=== PATIENT | female | born 1955 | race Caucasian/White ===

== ENCOUNTER 2018-04-30 19:42 | Emergency (ER) | payer OTHER, MEDICARE ==
[~2018-04-30] VITALS: Ht 160 cm; Wt 61.2 kg
--- OUTSIDE RECORDS SUMMARY | 2018-04-30 19:44 | XMS REPORT | Clinical Summary ---
Author Author [facility] Organization [facility] Address Unknown Phone Unavailable Care Team Providers Care Caretaker Name Role Phone Asked, None Given PCP Unavailable Allergies No Known Allergies Medications End Date Status Medication Sig Dispensed Refills Start Date Active OXYCONTIN 30 mg TAKE ONE (1) 0 tablet,oral TABLET(S) BY 6 only,ext.rel.12 hr ER MOUTH FOUR tablet TIMES A DAY. Active PAZEO 0.7 % drops USE ONE (1) 3 DROP IN BOTH 6 EYES ONCE A DAY NEEDED. Active SYNTHROID 137 mcg tablet 0 6 Active HYDROcodone-acetaminophen TAKE ONE (1) 0 (NORCO) 10-325 mg per TABLET(S) BY 6 tablet MOUTH EVERY FOUR HOURS NEEDED FOR PAIN. Active lansoprazole (PREVACID) 0 30 MG capsule 6 Active valACYclovir (VALTREX) valacyclovir 0 1000 MG tablet 1 gram tablet Active Methenamine + Hyoscyamine Urelle 81 0 + Methylene Blue + mg-10.8 Salicylate + NaPhos mg-40.8 mg (URELLE) 81-10.8-40.8 mg tablet tablet Active fenofibrate (TRICOR) 145 0 MG tablet 7 Active ondansetron (ZOFRAN) 8 MG TAKE ONE (1) 4 tablet TABLET(S) BY 7 MOUTH EVERY EIGHT HOURS NEEDED FOR NAUSEA. Active diclofenac sodium 3 % gel 0 7 Active doxepin (ZONALON) 5 % 0 cream 7 Active fluocinonide 0.1 % cream 0 7 Active sucralfate (CARAFATE) 1 TAKE ONE (1) 4 12/20/201 gram tablet TABLET(S) BY 7 MOUTH BEFORE MEALS AND AT BEDTIME. Active betamethasone valerate APPLY SMALL 0 0.12 % foam AMOUNT TO 8 AFFECTED AREAS ON SCALP TWICE A DAY NEEDED. Active hyoscyamine TAKE ONE (1) 3 (ANASPAZ,LEVSIN) 0.125 mg TABLET(S) BY 8 tablet MOUTH EVERY FIVE HOURS NEEDED FOR BLADDER SPASMS. Active tiZANidine (ZANAFLEX) 4 TAKE 1 TABLET 270 tablet 1 MG tablet EVERY 8 8 HOURSAS NEEDED FOR MUSCLE SPASMS Active DULoxetine (CYMBALTA) 60 Take 1 90 capsule 1 MG capsule capsule (60 8 mg total) by mouth daily. Active lidocaine (LIDODERM) 5 % Place 1 patch 90 patch 3 on the skin 8 daily. Remove after 12 hours 08/09/2017 Discontinued lidocaine (LIDODERM) 5 % Place 1 patch 30 patch 6 on the skin 7 daily. Remove after 12 hours 05/11/2017 Discontinued DULoxetine (CYMBALTA) 60 Take 1 90 capsule 1 MG capsule capsule (60 7 mg total) by mouth daily. 05/11/2017 Discontinued tiZANidine (ZANAFLEX) 4 Take 1 tablet 270 tablet 1 MG tablet (4 mg total) 7 by mouth every 8 (eight) hours as needed for muscle spasms. 05/11/2017 Discontinued pantoprazole (PROTONIX) TAKE ONE (1) 3 40 MG EC tablet TABLET(S) BY 7 MOUTH TWICE A DAY. 08/09/2017 Discontinued DULoxetine (CYMBALTA) 60 Take 1 90 capsule 1 MG capsule capsule (60 8 mg total) by mouth daily. 08/09/2017 Discontinued tiZANidine (ZANAFLEX) 4 Take 1 tablet 270 tablet 1 MG tablet (4 mg total) 8 by mouth every 8 (eight) hours as needed for muscle spasms. 08/21/2017 Discontinued DULoxetine (CYMBALTA) 60 Take 1 90 capsule 3 MG capsule capsule (60 8 mg total) by mouth daily. 08/21/2017 Discontinued tiZANidine (ZANAFLEX) 4 Take 1 tablet 270 tablet 1 MG tablet (4 mg total) 8 by mouth every 8 (eight) hours as needed for muscle spasms. 02/07/2018 Discontinued lidocaine (LIDODERM) 5 % Place 1 patch 90 patch 3 on the skin 8 daily. Remove after 12 hours 02/07/2018 Discontinued DULoxetine (CYMBALTA) 60 TAKE 1 90 capsule 1 MG capsule CAPSULE DAILY 8 Active Problems Problem Noted Date History of disarticulation of right hip 06/21/2017 Phantom pain after amputation of lower extremity 05/11/2017 Elbow pain 02/09/2017 Elbow tendonitis 02/09/2017 Abnormality of gait 11/09/2016 Right hip pain 11/09/2016 Neuropathic pain 11/09/2016 Abnormal glucose level 09/19/2015 Abnormal pulse oximetry 09/19/2015 Acute posthemorrhagic anemia 09/19/2015 Acute respiratory failure 09/19/2015 Anemia 09/19/2015 Atelectasis 09/19/2015 Constipation 09/19/2015 Dialysis complication 09/19/2015 Disorder of cardiac function 09/19/2015 Stress incontinence in female 09/19/2015 Disorder of magnesium metabolism 09/19/2015 Primary malignant neoplasm of pelvis 09/19/2015 Urethral stricture 09/19/2015 Urinary incontinence 09/19/2015 Pain 09/19/2015 Open wound of trunk 09/19/2015 Open wound of anterior abdominal wall with complication 09/19/2015 Nocturnal and diurnal enuresis 09/19/2015 Neoplasm of uncertain behavior 09/19/2015 Nausea 09/19/2015 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 09/19/2015 Leukocytosis 09/19/2015 Hypokalemia 09/19/2015 Abnormal finding of trunk 09/19/2015 Overview: Finding of Trunk Structure 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 Overview: Urethral Sphincter Function-finding 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 Encounters Care Team Description Date Type Specialty Hans James MD Canceled (Patient) 04/20/2018 Hospital Radiology Encounter Hans James MD 04/20/2018 Telephone Oncology Antonina Barnard MA Sarcoma (HCC) (Primary Dx) 03/30/2018 Orders Only Oncology Antonina Barnard MA Sarcoma (HCC) (Primary Dx) 03/30/2018 Orders Only Oncology Hans James MD 03/16/2018 Telephone Oncology Ragini No MD Right hip pain (Primary Dx); Neuropathic pain; History of disarticulation of right hip; Abnormality of gait; Right elbow pain; Elbow tendonitis; Phantom pain after amputation of lower extremity (HCC) 02/07/2018 Office Visit Physical Medicine and Rehabilitation Ragini No MD Neuropathic pain (Primary Dx); Right elbow pain; Phantom pain after amputation of lower extremity; Right hip pain; Elbow tendonitis; History of disarticulation of right hip 11/08/2017 Office Visit Physical Medicine and Rehabilitation Hans James MD Fatty infiltration of liver 09/07/2017 Lab Lab Hans James MD 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 Office Visit Oncology Hans James MD 09/07/2017 Orders Only Oncology Antonina Barnard MA Fatty infiltration of liver (Primary Dx) 09/07/2017 Orders Only Oncology Ragini No MD 08/21/2017 Refill Physical Medicine and Rehabilitation Ragini No MD Phantom pain after amputation of lower extremity (Primary Dx); Neuropathic pain; Right elbow pain; Right hip pain 08/09/2017 Office Visit Physical Medicine and Rehabilitation Ragini No MD History of disarticulation of right hip (Primary Dx); Phantom pain after amputation of lower extremity; Neuropathic pain; Abnormality of gait; Right elbow pain; Elbow tendonitis 06/21/2017 Office Visit Physical Medicine and Rehabilitation Ragini No MD Decreased mobility (Primary Dx) 06/16/2017 Transcribe Physical Therapy Orders Ragini oN MD Right elbow pain 05/11/2017 Hospital Radiology Encounter Leah Zapien MD Elbow tendonitis (Primary Dx); Right elbow pain; Myofascial pain 05/11/2017 Office Visit Physical Medicine and Rehabilitation Ragini No MD Abnormality of gait (Primary Dx); Neuropathic pain; Right hip pain; Right elbow pain; Phantom pain after amputation of lower extremity 05/11/2017 Office Visit Physical Medicine and Rehabilitation after 04/29/2017 Social History Date Tobacco Use Types Packs/Day Years Used Former Smoker Smokeless Tobacco: Never Used Tobacco Cessation: Counseling Given: No Comments: stopped 2006 Sex Assigned at Date Recorded Not on file Industry Job Start Date Occupation Not on file Not on file Not on file Travel End Travel History Travel Start No recent travel history available. Last Filed Vital Signs Time Taken Vital Sign Reading 02/07/2018 2:11 PM CDT Blood Pressure 138/88 02/07/2018 2:11 PM CDT Pulse 71 09/07/2017 2:22 PM CDT Temperature 35.9 C (96.7 F) - Respiratory Rate - - Oxygen Saturation - - Inhaled Oxygen - Concentration 09/07/2017 2:22 PM CDT Weight 62.1 kg (137 lb) - Height - 09/07/2017 2:22 PM CDT Body Mass Index 25.89 Plan of Treatment Care Team Description Date Type Specialty Ragini No MD [address] [address] 05/10/2018 Office Visit Physical Medicine and Rehabilitation Health Maintenance Due Date Last Done Comments CERVICAL CANCER SCREENING 1974 COLON CANCER SCREENING 2003 SHINGLES VACCINES (1 of 2003 2) BREAST CANCER SCREENING 06/18/2012 06/18/2010, 06/09/2010 INFLUENZA VACCINE 12/01/2017 PNEUMOCOCCAL 2018 POLYSACCHARIDE VACCINE AGE 65 AND OVER PNEUMOCOCCAL-13 2018 Procedures Comments Procedure Name Priority Date/Time Associated Diagnosis DRUG SCREEN Routine 11/23/2017 CARCINOEMBRYONIC ANTIGEN Routine 09/07/2017 (CEA) 3:20 PM CDT CBC WITH PLATELET AND Routine 09/07/2017 DIFFERENTIAL 3:20 PM CDT COMPREHENSIVE METABOLIC Routine 09/07/2017 PANEL 3:20 PM CDT LDH Routine 09/07/2017 3:20 PM CDT LIPID PANEL Routine 09/07/2017 3:20 PM CDT DRUG SCREEN Routine 08/12/2017 TN MD SERVICE REQUIRED Routine 06/21/2017 Right elbow pain FOR PMD 9:30 AM TARPER History of disarticulation of right hip DRUG SCREEN Routine 05/18/2017 XR ELBOW 2 VW RIGHT Routine 05/11/2017 Right elbow pain 1:39 PM TARPER TN INJECT TRIGGER POINT, Routine 05/11/2017 Right elbow pain 1 OR 2 12:32 PM TARPER Myofascial pain TN ARTHROCENTESIS Routine 05/11/2017 Elbow tendonitis ASPIR&/INJ INTERM JT/BURS 12:32 PM TARPER Right elbow pain W/O US after 04/29/2017 Results * Drug Screen (11/23/2017) Only the most recent of 3 results within the time period is included. Narrative Performed At * CBC with platelet and differential (09/07/2017 3:20 PM CDT) WBC 7.0 3.8 - 10.8 Thousand/uL [facility] [place] RBC 4.16 3.80 - 5.10 Million/uL [facility] [place] HGB 12.0 11.7 - 15.5 g/dL [facility] [place] HCT 35.7 35.0 - 45.0 % [facility] [place] MCV 85.8 80.0 - 100.0 fL [facility] [place] MCH 28.8 27.0 - 33.0 pg [facility] [place] MCHC 33.6 32.0 - 36.0 g/dL [facility] [place] RDW 12.4 11.0 - 15.0 % [facility] [place] Platelet count 326 140 - 400 Thousand/uL [facility] [place] MPV 9.8 7.5 - 12.5 fL [facility] [place] Neutrophils, absolute 3,395 1,500 - 7,800 cells/uL [facility] [place] Lymphocytes, absolute 2,499 850 - 3,900 cells/uL [facility] [place] Monocytes, absolute 651 200 - 950 cells/uL [facility] [place] Eosinophils, absolute 392 15 - 500 cells/uL [facility] [place] Basophils, absolute 63 0 - 200 cells/uL [facility] [place] Neutrophils 48.5 % [facility] [place] Lymphocytes 35.7 % [facility] [place] Monocytes 9.3 % [facility] [place] Eosinophils 5.6 % [facility] [place] Basophils + RC 0.9 % [facility] [place] Narrative Performed At FASTING: UNKNOWN [facility] Resulting Agency Comment Performing Organization Information: Site ID: [id number] Name: [facility] Address: [address] [place] [id number] Director: Mae Shaw Performing Organization Address City/State/Zipcode Phone [place] [address] * LDH (09/07/2017 3:20 PM CDT) LDH 161 120 - 250 U/L [facility] [place] Narrative Performed At FASTING: UNKNOWN [facility] Resulting Agency Comment Performing Organization Information: Site ID: [facility] Name: [facility] Address: [address] [place] [phone] Director: Mae Shaw Performing Organization Address [facility] Phone [place] [address] * Carcinoembryonic antigen (CEA) (09/07/2017 3:20 PM CDT) CEA 2.5 (H) See Note: ng/mL [facility] Comment: [place] Reference Range: Non-Smoker: <2.5 Smoker: <5.0 This test was performed using the Siemens chemiluminescent method. Values obtained from different assay methods cannot be used interchangeably. CEA levels, regardless of value, should not be interpreted as absolute evidence of the presence or absence of disease. Narrative Performed At FASTING: UNKNOWN [facility] Resulting Agency Comment Performing Organization Information: Site ID: [facility] Name: [facility] Address: [address] [place] [phone] Director: Mae Shaw Performing Organization Address [facility] Phone Number [employer] [place] [address] * Lipid panel (09/07/2017 3:20 PM CDT) Cholesterol, total 196 <200 mg/dL [facility] [place] HDL cholesterol 37 (L) >50 mg/dL [facility] [place] Triglycerides 290 (H) <150 mg/dL [facility] [place] LDL cholesterol 118 (H) mg/dL (calc) [facility] Comment: [place] Reference range: <100 Desirable range <100 mg/dL for primary prevention; <70 mg/dL for patients with CHD or diabetic patients with > or=2 CHD risk factors. LDL-C is now calculated using the James calculation, which is a validated novel method providing better accuracy than the Friedewald equation in the estimation of LDL-C. Eran BECKWITH et al. LOTTIE. 2013;310(19): 9347-4441 (http://education.Logicworks.com/faq/KOP465) Cholesterol/HDL ratio 5.3 (H) <5.0 (calc) [facility] [place] Non-HDL cholesterol 159 (H) <130 mg/dL (calc) [facility] Comment: [place] For patients with diabetes plus 1 major ASCVD risk factor, treating to a non-HDL-C goal of <100 mg/dL (LDL-C of <70 mg/dL) is considered a therapeutic option. Narrative Performed At FASTING: UNKNOWN [facility] Resulting Agency Comment Performing Organization Information: Site ID: [id number] Name: [facility] Address: [address] [place] [phone] Director: Mae Shaw Performing Organization Address City/State/Zipcode Phone Number [employer] [place] [phone] * Comprehensive metabolic panel (09/07/2017 3:20 PM CDT) Glucose 100 (H) 65 - 99 mg/dL [facility] Comment: [place] Fasting reference interval For someone without known diabetes, a glucose value between 100 and 125 mg/dL is consistent with prediabetes and should be confirmed with a follow-up test. BUN, whole blood 18 7 - 25 mg/dL [facility] Creatinine 0.70 0.50 - 0.99 mg/dL [facility] Comment: [place] For patients >49 years of age, the reference limit for Creatinine is approximately 13% higher for people identified as -Citizen [place]. EGFR Non-Afr. [place] 92 > OR=60 mL/min/1.73m2 [facility] EGFR 106 > OR=60 mL/min/1.73m2 [facility] BUN/creatinine ratio NOT APPLICABLE 6 - 22 (calc) [facility] [place] Sodium 141 135 - 146 mmol/L [facility] [place] Potassium 4.0 3.5 - 5.3 mmol/L [facility] [place] Chloride 104 98 - 110 mmol/L [facility] [place] CO2 31 20 - 31 mmol/L [facility] [place] Calcium 9.1 8.6 - 10.4 mg/dL [facility] [place] Protein 5.7 (L) 6.1 - 8.1 g/dL [facility] [place] Albumin, S 3.8 3.6 - 5.1 g/dL [facility] [place] Globulin, total 1.9 1.9 - 3.7 g/dL (calc) [facility] [place] Albumin/globulin ratio 2.0 1.0 - 2.5 (calc) [facility] [employer] [facility] [place] Total bilirubin 0.3 0.2 - 1.2 mg/dL [facility] [place] Alkaline phosphatase 62 33 - 130 U/L [facility] AST 22 10 - 35 U/L [facility] ALT 21 6 - 29 U/L [facility] [place] Narrative Performed At FASTING: UNKNOWN [facility] Resulting Agency Comment Performing Organization Information: Site ID: [id number] Name: [facility] Address: [address] [place] [phone] Director: Mae Shaw Performing Organization Address City/State/Zipcode [place] [address] * Mobility Examination (06/21/2017 9:30 AM TARPER) Narrative Performed At Ragini No MD 06/21/2017 11:31 AM Mobility Exam Date/Time: 06/21/2017 10:33 AM Performed by: RAGINI NO Authorized by: RAGINI NO Medical conditon(s)/disease(s) limiting patient's mobility in home:Other (Right hip pelvectomy, severe OA with pain of arms) Physical Exam - Symptoms/ Limitations / Pain: SYMPTOMS:Amputation, Abnormal Gait and Risk of Falls Upper Body Weakness:Mild Upper Body Pain:Severe Upper Body Range of Motion:Partially Limited Lower Body Weakness:Moderate Lower Body Pain:Moderate Lower Body Range of Motion:Severely Limited (Right hip pelvectomy.) PAIN LOCATION:R Elbow, L Shoulder, R Shoulder and L Knee Mobility Questions: Patient has ability to stand from seated position without assistance?: No Patient Transfer:Independently Can patient lift themselves from seated surface using only upper extremities?: No Does patient have ability to effectively pressure shift?: No History of pressure sores?: No Current pressure sores?: No Upper Extremity Edema: No Lower Extremity Edema: Yes LE Edema Severity:Mild Mobility Related Activities of Daily Living: Without a mobility aid, how far can patient walk without stopping (ft)?: 0 Distance allows patient to complete MRADL in safe and timely manner?: No Select all MRADL that patient is unable to accomplish due to mobility limitations.:Eating, Toileting, Meal Prep, Light Housekeeping, Grooming, Dressing, Bathing and Moving from Room to Room Is patient willing and have cogintion, judgment and/or vision to independently participate in MRADLs with a mobility device?: Yes Will a cane or walker allow patient to complete all MRADLs safely and timely?: No Does patient have sufficient upper and/or lower extremity strength to self-propel an optimally configured manual wheelchair to complete all MRADLs safely and timely?: No (Right elbow tendonitis with pain) Scooter use requires a patient to have sufficient trunk strength, hand bottling equipment sales representative, and upper extremity function, balance to sit upright, requires the ability to stand and pivot and may require more space in home to maneuver. Given these requirements, is a scooter appropriate?: No Reason(s):Patient has insufficient upper extremity function and/or strength, Patient has insufficient hand bottling equipment sales representative and Patient requires seating and/or options that aren't available on a scooter Does the patient have the functional ability to consistently access a drive controland the cognition, judgment, and visual ability to safely operate a power wheelchair to participate in MRADLs within their home?: Yes Patient requires OT/PT Functional Mobility Assessment?: Yes * XR Elbow 2 Vw Right (05/11/2017 1:39 PM TARPER) Narrative Performed At EXAMINATION:XR ELBOW 2 VW RIGHT HM [facility] CLINICAL HISTORY:M25.521 Pain in right elbow, ARTHRITISELBOW COMPARISON:No Prior IMPRESSION: 1.The bones, soft tissues and joints are unremarkable. No definite elbow joint effusion or acute fracture. No appreciable osteoarthritis is present. Joint spaces are preserved. [facility]-[id number] Procedure Note Hm Interface, Radiology Results Incoming - 05/11/2017 2:28 PM [facility]ARPER EXAMINATION: XR ELBOW 2 VW RIGHT CLINICAL HISTORY: M25.521 Pain in right elbow, ARTHRITIS ELBOW COMPARISON: No Prior IMPRESSION: 1. The bones, soft tissues and joints are unremarkable. No definite elbow joint effusion or acute fracture. No appreciable osteoarthritis is present. Joint spaces are preserved. [facility]-[id number] Performing Organization Address City/State/Zipcode Phone Number [facility] [address] [place] [address] * Joint/Bursa Injection (05/11/2017 12:32 PM TARPER) Narrative Performed At Leah Zapien MD 05/11/2017 12:32 PM Joint/Bursa Injection Consent given by: patient Timeout: Immediately prior to procedure a time out was called to verify the correct patient, procedure, equipment, office support and site/side marked as required Supporting Documentation Indications: pain Procedure Details Injection Type: joint Location: elbow (right lateral epicondyle) - right Medications administered: 20 mg triamcinolone acetonide 40 mg/mL; 0.5 mL lidocaine 10 mg/mL (1 %) Elbow Joint Size: intermediate * INJECT TRIGGER POINT, 1 OR 2 (05/11/2017 12:32 PM TARPER) Narrative Performed At Leah Zapien MD 05/11/2017 12:32 PM Trigger Point Injection Date/Time: 05/11/2017 12:31 PM Performed by: LEAH ZAPIEN Authorized by: LEAH ZAPIEN Consent: Consent obtained:Written Consent given by:Patient Risks discussed:Allergic reaction, bleeding, infection, pain and nerve damage Alternatives discussed:No treatment, alternative treatment and referral Indications: Indications:Pain relief Location: Therapeutic Trigger Point Injection:Single/multiple trigger point(s): 1-2 muscle groups Location: elbow Location comment:Proximal forearm extensors adjacent to lateral epicondyle Elbow injected:Right Medications administered: 20 mg triamcinolone acetonide 40 mg/mL; 0.5 mL lidocaine 10 mg/mL (1 %) Pre-procedure details: Skin preparation:Alcohol Post-procedure details: Patient tolerance of procedure:Tolerated well, no immediate complications after 04/29/2017 Insurance Payer Benefit Subscriber ID Type Phone Address Plan / Group AETNA AETNA xxxxxxxxxx HMO HMO,POS,EP O, MC/EC Advance Directives Patient has advance care planning documents on file. For more information, vasu gongora contact: Al Lechuga [address] [place] [address]
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
== END 2018-04-30 22:03 | disposition home or self-care (01) ==
LOC: FSED 19:42
DX: S02.2XXA Fracture of nasal bones, initial encounter for closed fracture (principal); S00.33XA Contusion of nose, initial encounter; S46.812A Strain of other muscles, fascia and tendons at shoulder and upper arm level, left arm, initial encounter; V43.62XA Car passenger injured in collision with other type car in traffic accident, initial encounter; Y92.488 Other paved roadways as the place of occurrence of the external cause
CPT/HCPCS: 70486; 99283

== ENCOUNTER 2019-02-08 00:49 | Observation (INO) | payer MEDICARE ==
[~2019-02-08] VITALS: Ht 160 cm; Wt 62.6 kg
[2019-02-08] VITALS (8 sets, daily range): BP systolic 118–152; BP diastolic 54–89
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
[2019-02-08] MEDS ORDERED: MORPHINE SULFATE INJ 4 MG/ML INJ 1ML IV STA (00:54)
[2019-02-08] MEDS ORDERED: ONDANSETRON HCL INJ 2MG/ML 2ML 2 MG/ML VIAL IV STA (00:54)
[2019-02-08] MEDS ORDERED: ASPIRIN 81 MG CHEW TAB PO ONE ×2 (01:00→02:45)
[2019-02-08 01:17] LABS: BASOPHILS # (AUTO) 0.1 (0.0-0.1); BASOPHILS % 0.5 % (0.0-1.0); EOSINOPHILS # (AUTO) 0.5 (0.0-0.4); EOSINOPHILS % 4.7 % (0.0-6.0); HEMATOCRIT 36.1 % (34.2-44.1); HEMOGLOBIN 11.7 g/dL (12.0-16.0); LYMPHOCYTES # (AUTO) 2.3 (1.0-3.2); LYMPHOCYTES % 22.8 % (18.0-39.1); MEAN CORPUSCULAR HEMOGLOBIN 28.1 pg (28-32); MEAN CORPUSCULAR HGB CONC 32.4 g/dL (31-35); MEAN CORPUSCULAR VOLUME 86.8 fL (81-99); MONOCYTES # (AUTO) 0.9 (0.2-0.8); MONOCYTES % 8.7 % (4.4-11.3); NEUTROPHILS # (AUTO) 6.5 (2.1-6.9); NEUTROPHILS % 63.1 % (38.7-80.0); PLATELET COUNT 336 x10e3/uL (140-360); RED BLOOD COUNT 4.16 x10e6/uL (3.6-5.1); RED CELL DISTRIBUTION WIDTH 13.7 % (11.7-14.4)
[2019-02-08 01:34] LABS: ALANINE AMINOTRANSFERASE 16 IU/L (0-55); ALBUMIN 3.5 g/dL (3.5-5.0); ALBUMIN/GLOBULIN RATIO 1.1 (0.8-2.0); ALKALINE PHOSPHATASE 49 IU/L (40-150); ANION GAP 15.6 mmol/L (8-16); BLOOD UREA NITROGEN 15 mg/dL (7-26); BUN/CREATININE RATIO 18 (6-25); CALCIUM 10.1 mg/dL (8.4-10.2); CARBON DIOXIDE 28 mmol/L (22-29); CHLORIDE 104 mmol/L (98-107); CREATINE KINASE 54 IU/L (29-168); CREATININE, SERUM 0.83 mg/dL (0.57-1.11); EST GLOMERULAR FILTRATION RATE > 60 ML/MIN (60-); GLUCOSE 126 mg/dL (74-118); POTASSIUM 3.6 mmol/L (3.5-5.1); SODIUM 144 mmol/L (136-145)
--- NOTE | 2019-02-08 01:55 | Diagnostic Imaging Report ---
EXAMINATION: CHEST SINGLE (NOT PORTABLE) INDICATION: CHEST PAIN COMPARISON: 11/25/2009. FINDINGS: TUBES and LINES: None. LUNGS: There are bibasilar atelectasis. There is no evidence of pneumonia or pulmonary edema. PLEURA: No pleural effusion or pneumothorax. HEART AND MEDIASTINUM: The cardiomediastinal silhouette is unremarkable. BONES AND SOFT TISSUES: No acute osseous lesion. Soft tissues are unremarkable. UPPER ABDOMEN: No free air under the diaphragm. IMPRESSION: No acute thoracic abnormality. Signed by: Dr. Maria Del Rosario Echavarria M.D. on 02/08/2019 1:52 AM
[2019-02-08] MEDS ORDERED: ONDANSETRON HCL INJ 2MG/ML 2ML 2 MG/ML VIAL IV PRN (02:45)
--- NOTE | 2019-02-08 03:45 | NUR ---
patient received to room 299 via stretcher from the emergency room. vss. no c/o occasional chest pain 10/10. admit assessment/history complete. at the bedside. patient/ instructed to call for assistance when needed.
[2019-02-08] MEDS ORDERED: SYNTHROID125 MCG PO (05:45)
[2019-02-08] MEDS ORDERED: NORCO 10-325 T1 EACH (05:45)
[2019-02-08] MEDS ORDERED: OXYCONTIN10 MG PO (05:45)
[2019-02-08] MEDS ORDERED: CYMBALTA30 MG (05:45)
[2019-02-08] MEDS: MORPHINE SULFATE INJ 4 MG/ML INJ 1ML IV PRN ×2 (06:12→06:42)
--- NOTE | 2019-02-08 06:12 | NUR ---
patient medicated with morphine 4mg and zofran 4mg ivp for c/o chest pain 11/09 at this time per patients request. remains at the bedside.
--- NOTE | 2019-02-08 06:50 | NUR ---
RECEIVED REPORT FROM ONCOMING NURSE. WALKING ROUNDS DONE. PATIENT IS RESTING IN BED. NO ACUTE DISTRESS NOTED. CALL LIGHT WITHIN REACH. BED IN THE LOWEST POSITION.
--- NOTE | 2019-02-08 08:21 | NUR ---
H&P cc: chest pain HPI: 64yoF, PCP none, developed chest pain precordium. Mild SOB; no dizziness. No stress test in past. 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 PHSx: hysterectomy, pelvic sarcoma, thyroid, right leg/hip resection for sarcoma Allergies; see emr Fh/SH; ; no cigs meds; see MAR ROS: no f/c/s/N/V/D/CORRIGAN/vision changes/skin rash/dizziness/back pain v/s; revd PE; tired appearing anicteric ns1s2 mod bs soft nt nd no e/t left leg; right leg/hip absent; well healed site/scar. skin dry n. affect a&ox3; smith labs/meds; revd A/P: 64yoF Atypical chest pain Hypothyroidism Ambulatory dysfunction PLAN get 2nd cardiac enzyme f/u echo check lipids JACKI GIBSON MD, PHD.
[2019-02-08 09:28] LABS: CHOL/HDL RATIO 3.3 (3.0-3.6)
[2019-02-08 09:34] LABS: CREATINE KINASE MB 1.3 ng/mL (0-5.0)
[2019-02-08] MEDS: ASPIRIN 325 MG TAB PO SCH (09:36)
--- NOTE | 2019-02-08 10:53 | Diagnostic Imaging Report ---
EXAM: CT Chest WITH contrast- Pulmonary Embolism Protocol INDICATION: Pleuritic chest pain COMPARISON: Chest radiograph of earlier the same day TECHNIQUE: Chest was scanned utilizing a multidetector helical scanner from the lung apex through the level of the diaphragm after administration of IV contrast. Thin section reconstructions were obtained with special concentration on the pulmonary arteries. Coronal and sagittal reformations were obtained. Pulmonary embolism protocol was performed. IV CONTRAST: 100 cc of Isovue 370 RADIATION DOSE: Total DLP: 513.6 mGy*cm Dose modulation, iterative reconstruction, and/or weight based adjustment of the mA/kV was utilized to reduce the radiation dose to as low as reasonably achievable. COMPLICATIONS: None FINDINGS: LINES/ TUBES: None. PULMONARY ARTERIES: No filling defect is identified within the pulmonary arteries to the segmental level. The subsegmental pulmonary arteries are not well opacified. Main pulmonary artery measures 2.5 centimeters in diameter. LUNGS AND AIRWAYS: The central airways are patent. No focal consolidation. No pulmonary edema. Minimal bibasilar dependent subsegmental atelectasis. Right lower lobe subcentimeter calcified granuloma. No suspicious pulmonary nodules. PLEURA: No pleural effusion or pneumothorax. HEART AND MEDIASTINUM: The thyroid gland is normal. No supraclavicular, mediastinal, or hilar lymphadenopathy. No axillary or internal mammary lymphadenopathy. The heart is not enlarged. No pericardial effusion. No evidence of right heart strain. UPPER ABDOMEN: Limited views of the upper abdomen demonstrate no focal abnormality of the partially visualized liver, gallbladder, spleen, pancreas, adrenals, or upper kidneys. BONES: No acute osseous injury. Mild degenerative changes of the visualized spine. SOFT TISSUES: Unremarkable. IMPRESSION: No pulmonary embolism. Signed by: Ana Fischer MD on 02/08/2019 10:50 AM
--- NOTE | 2019-02-08 12:21 | Consultation ---
DATE OF CONSULTATION: 02/08/2019 Cardiology Consultation CONSULTING PHYSICIAN: Rusty Knapp MD, Interventional Cardiology. REASON FOR CONSULTATION: Chest pain. HISTORY OF PRESENT ILLNESS: Ms. Wagner is a pleasant 64-year-old woman with history of spindle cell sarcoma, status post right hemipelvectomy and lower extremity amputation in 2009, who presents with complaints of sudden onset chest discomfort, worse with deep inspiration and cough, severe in nature, radiating to neck, occurring at rest. Onset within the last 48 hours, currently partially improved. She mostly uses a wheelchair and complains of chronic residual edema to left lower extremity presents since after her amputation, unchanged. REVIEW OF SYSTEMS: A 12-system review is negative except for as noted above. SOCIAL HISTORY: Negative for smoking, alcohol, or drugs. PAST MEDICAL HISTORY: Significant for spindle cell sarcoma, hypothyroidism, and chronic pain syndrome. FAMILY HISTORY: Noncontributory. PHYSICAL EXAMINATION: VITAL SIGNS: Temperature 97.3, heart rate 91, respiratory rate 20, blood pressure 152/69, and O2 saturation 97% on room air. GENERAL: In no acute distress, alert. NECK: No JVD. CHEST: Clear to auscultation. CARDIOVASCULAR: Regular rate and rhythm. Normal S1, S2. No S3, no S4. No murmurs, no rubs. ABDOMEN: Soft, nontender. Bowel sounds positive. EXTREMITIES: With 1+ left edema including toes most consistent with lymphedematous changes and amputated right lower extremity. CARDIOVASCULAR MEDICATIONS: Reviewed. Lovenox subcu daily. STUDIES: Reviewed. Sodium 144, potassium 3.6, chloride 104, bicarbonate 28, BUN 15, creatinine 0.83, and glucose 126. White blood cells 10.2, hemoglobin 11.7, and platelets 336. AST 18, ALT 16, alkaline phosphatase 49, and total bilirubin 0.2. Telemetry sinus rhythm. ASSESSMENT: A 64-year-old woman, presents with pleuritic type chest discomfort and history of remote spindle cell sarcoma, status post right lower extremity amputation and hemipelvectomy. She has also history of hypothyroidism, has mild anemia. RECOMMENDATIONS: 1. CT chest PE protocol to rule out pulmonary embolism. 2. Obtain echocardiogram. 3. Consider trial NSAIDs if no PE. Differential includes pleurisy and pericarditis. 4. Musculoskeletal etiology also consideration particularly as the patient does use crutches as well as wheelchair to get around. I thank Dr. Benitez for the opportunity to participate in the care of Ms. Wagner. Please feel free to call with questions. MD KASEY Cosme/ERIKA /[id number]
[2019-02-08] MEDS: OXYCODONE HCL 10 MG TAB CR PO SCH ×2 (13:45→21:51)
[2019-02-08] MEDS ORDERED: ENOXAPARIN SOD INJ 40 MG/0.4 ML SYR SC SCH (17:00)
[2019-02-08] MEDS: FAMOTIDINE 20 MG TAB PO SCH (17:42)
[2019-02-08] MEDS ORDERED: HYDROCODONE/APAP 5MG-325MG TAB PO PRN (17:45)
[2019-02-08] MEDS ORDERED: SODIUM CHLORIDE 0.9% 50ML 50 ML ONE (18:06)
[2019-02-08] MEDS ORDERED: IOPAMIDOL 370 MG/ML 200 ML INFUS..BTL INJ ONE (18:06)
--- NOTE | 2019-02-08 19:26 | NUR ---
REPORT GIVEN TO ONCOMING NURSE. WALKING ROUNDS DONE. PATIENT IS RESTING IN BED. NO ACUTE DISTRESS NOTED. CALL LIGHT WITHIN REACH. BED IN THE LOWEST POSITION.
[2019-02-09] VITALS: BP 143/76
[2019-02-09 04:53] VITALS: BP 150/67
[2019-02-09] MEDS: OXYCODONE HCL 10 MG TAB CR PO SCH (05:27)
[2019-02-09] MEDS ORDERED: ASPIRIN325 MG PO (06:30)
[2019-02-09] MEDS ORDERED: LEVOTHYROXINE SODIUM 112 MCG TAB PO SCH (06:30)
[2019-02-09] MEDS ORDERED: MELOXICAM7.5 MG PO (06:30)
[2019-02-09] MEDS ORDERED: LEVOTHYROXINE SODIUM 25 MCG TABLET PO SCH (06:30)
[2019-02-09] MEDS ORDERED: FAMOTIDINE20 MG PO (06:30)
--- NOTE | 2019-02-09 06:32 | NUR ---
D/C summary Principal Dx: Pleurisy Atypical chest pain Secondary dx: Hypothyroidism Ambulatory dysfunction PLAN get 2nd cardiac enzyme f/u echo check lipids d/c home f/u 3-5 days stable d/c>35mins JACKI GIBSON MD, PHD.
--- NOTE | 2019-02-09 06:50 | NUR ---
Received report from off going nurse. Patient is sitting up in personal wheelchair. No acute distress noted. Call light within reach. Bed in the lowest position.
[2019-02-09 07:52] VITALS: BP 153/74
[2019-02-09] MEDS: FAMOTIDINE 20 MG TAB PO SCH (08:06)
[2019-02-09] MEDS: ASPIRIN 325 MG TAB PO SCH (08:06)
[2019-02-09 09:24] VITALS: BP 153/74
--- NOTE | 2019-02-09 10:05 | NUR ---
RECEIVED DC ORDER FROM MD. PATIENT IS IN STABLE CONDITION. DENIES CHEST PAIN. IV LINE TO LEFT AC DCD WITH TIP INTACT, PRESSURE APPLIED TO SITE, NO BLEEDING NOTED. DISCHARGE TEACHING PROVIDED, PATIENT VERBALIZED UNDERSTANDING. DC FOLDER WITH PRESCRIPTIONS AND PERSONAL ITEMS ON HAND. PATIENT ACCOMPANIED TO PRIVATE AUTO VIA OWN WHEELCHAIR BY STAFF.
[2019-02-09] MEDS ORDERED: ONDANSETRON HCL 4 MG ORAL DISINTEGRATING TAB PO PRN (10:15)
== END 2019-02-09 10:05 | disposition home or self-care (01) ==
LOC: ER 00:49 → ERHOLD 03:31 → MED/SURG3 03:36
PROVIDERS: ADMIT Internal Medicine; ATTEND Internal Medicine
DX: R09.1 Pleurisy (principal); R07.89 Other chest pain; Z91.048 Other nonmedicinal substance allergy status; Z91.041 Radiographic dye allergy status; E03.9 Hypothyroidism, unspecified; D64.9 Anemia, unspecified; Z85.831 Personal history of malignant neoplasm of soft tissue; Z89.621 Acquired absence of right hip joint
CPT/HCPCS: 36415; 71045; 71260; 80053; 80061; 82550; 82553; 83880; 84484; 85025; 93005; 93306; 99284; G0378 ×2; J1650; J2270; J2405; Q9967